=== PATIENT | male | born 1935 | race Native Hawaiian/Other Pacific Islander ===

== ENCOUNTER 2016-12-17 10:50 | Outpatient (CLI) | payer OTHER ==
[~2016-12-17 10:50] MED LIST: ASPIR-LOW81 MG PO; EZET10TA13 OR; FLUTMIS14 INH; GABA300C2 PO; GRALISE600 MG OR; IMDUR60 MG PO; INSUINJ20 SC; INSUINJ32 SC; ISOSORB DIN30 MG OR; L-THYROXINE PO; LATA0.00 OP; METOPROLOL25 M1 OR; NOVOLIN N1 ML SC; PLAVIX75 MG PO; PRINIVIL10 MG OR; SERT100T PO; SODI650T PO; TENCON 50-325 M1 TAB PO; TRILIPIX135 MG OR; WELCHOL625 MG OR; XYZAL5 MG OR
== END 2016-12-17 11:55 | disposition home or self-care (01) ==
LOC: LAB 10:50
DX: R19.7 Diarrhea, unspecified (principal)
CPT/HCPCS: 82272; 87045; 87205; 87328; 87329; 87493; 87798; 87899

== ENCOUNTER 2017-06-27 08:32 | Day surgery (SDC) | payer OTHER ==
[~2017-06-27] VITALS: Ht 30.5 cm; Wt 0.5 kg
== END 2017-06-27 10:56 ==
LOC: OR 08:32
PROC: 08RK3JZ Replacement of Left Lens with Synthetic Substitute, Percutaneous Approach (ICD-10-PCS; principal; 2017-06-27)
DX: H25.812 Combined forms of age-related cataract, left eye (principal)
CPT/HCPCS: 66984

== ENCOUNTER 2017-07-25 10:31 | Outpatient (CLI) | payer OTHER ==
[2017-07-25 10:53] LABS: PLATELET COUNT 368 K/uL (142-355)
[2017-07-25 11:16] LABS: POTASSIUM 4.6 mmol/L (3.6-5.2)
== END 2017-07-25 20:28 | disposition home or self-care (01) ==
LOC: LABW 10:31
PROVIDERS: Nurse Practitioner Family
DX: D64.89 Other specified anemias (principal); K92.1 Melena
CPT/HCPCS: 36415; 80053; 85027

== ENCOUNTER 2017-08-08 06:41 | Day surgery (SDC) | payer OTHER ==
[~2017-08-08] VITALS: Ht 30.5 cm; Wt 0.5 kg
== END 2017-08-08 11:00 | disposition home or self-care (01) ==
LOC: OR 06:41
PROC: 08RJ3JZ Replacement of Right Lens with Synthetic Substitute, Percutaneous Approach (ICD-10-PCS; principal; 2017-08-08)
DX: H25.811 Combined forms of age-related cataract, right eye (principal)
CPT/HCPCS: 66984; J0171

== ENCOUNTER 2018-03-01 14:18 | Outpatient (CLI) | payer OTHER | END 2018-03-01 23:59 | disposition home or self-care (01) | LOC: LABW 14:18 | DX: N18.3 Chronic kidney disease, stage 3 (moderate) (principal); I12.9 Hypertensive chronic kidney disease with stage 1 through stage 4 chronic kidney disease, or unspecified chronic kidney disease; D63.1 Anemia in chronic kidney disease; N25.81 Secondary hyperparathyroidism of renal origin; E11.9 Type 2 diabetes mellitus without complications; I25.10 Atherosclerotic heart disease of native coronary artery without angina pectoris; F32.9 Major depressive disorder, single episode, unspecified; I50.9 Heart failure, unspecified; E03.9 Hypothyroidism, unspecified; E78.5 Hyperlipidemia, unspecified | CPT/HCPCS: 36415; 82306; 82310; 82728; 83540; 83550; 83970; 84100; 85018 ==

== ENCOUNTER 2019-01-30 15:43 | Outpatient (CLI) | payer OTHER ==
[2019-01-30 16:03] LABS: PLATELET COUNT 258 K/uL (142-355)
[2019-01-30 16:22] LABS: POTASSIUM 5.4 mmol/L (3.6-5.2)
== END 2019-01-30 23:31 | disposition home or self-care (01) ==
LOC: LAB 15:43
PROVIDERS: Nurse Practitioner Family
DX: I50.22 Chronic systolic (congestive) heart failure (principal); N18.3 Chronic kidney disease, stage 3 (moderate); E53.8 Deficiency of other specified B group vitamins
CPT/HCPCS: 80053; 80061; 82607; 82746; 83880; 84436; 84443; 85027

== ENCOUNTER 2019-02-22 11:22 | Outpatient (CLI) | payer OTHER ==
[2019-02-22 11:57] LABS: POTASSIUM 4.8 mmol/L (3.6-5.2)
== END 2019-02-22 23:53 | disposition home or self-care (01) ==
LOC: LAB 11:22
PROVIDERS: Internal Medicine Nephrology
DX: I12.9 Hypertensive chronic kidney disease with stage 1 through stage 4 chronic kidney disease, or unspecified chronic kidney disease (principal); N18.3 Chronic kidney disease, stage 3 (moderate); D63.1 Anemia in chronic kidney disease
CPT/HCPCS: 80048; 85014; 85018